=== PATIENT | male | born 1960 | race Caucasian/White ===

== ENCOUNTER → 2016-10-25 | Day surgery (SDC) | payer OTHER ==
[~2016-10-25] VITALS: Ht 180.3 cm; Wt 96.2 kg
[~2016-10-25] MED LIST: 'XANAX1 MG PO; ACCUNEB 0.1.25 MG/3 NEB; AUGMENTIN 875 M1 TAB PO; B121000 MCG/1 IM; CLARITIN REDITA10 MG PO; CLINDAMYCIN HC300 MG PO; COLACE100 MG PO; DULER200 INH; FAMOTIDINE40 MG PO; FLONASE0.05 MG/AC NS; GOOD NEIGHBOR L10 MG PO; HYDROCODONE BIT1 T11 PO; INDERAL20 MG PO; KEFLEX500 MG PO; MISOPROST200 MCG PO; MONTELUKAST SOD10 MG PO; MOTRIN800 MG PO; PRILOSEC40 MG PO; QUETIAPINE FUM100 M3 PO; REGLAN5 MG PO; RESTORIL30 MG PO; SEROQUEL100 MG PO; SEROQUEL300 MG PO; SEROQUEL400 MG PO; SINGULAIR10 MG PO; SPIRIVA -- 3018 MCG INH; SPIRIVA RESPIMAT4 GM INH; SPIRIVA18 MCG PO; SYMBICORT1 AE1 INH; TOPAMAX50 MG PO; TRINTELLIX20 MG PO; VENTOLIN 02.5 MG/3 M INH; VICODIN 5/500 505 MG PO; VOLTAREN50 M1 PO; XANAX XR2 MG PO
--- NOTE | ~2016-10-25 | O ---
[place], [place] OPERATIVE NOTE NAME: MOSES ZHANG [facility] #: [id number] UNIT #: [id number] ROOM: DOCTOR: LILIANE SANTANA MD BIRTHDATE: [birth year] DOS: 10/25/2016 PREOPERATIVE DIAGNOSIS: Cataract, right eye. POSTOPERATIVE DIAGNOSIS: Cataract, right eye. OPERATION: Extracapsular cataract extraction by phacoemulsification with posterior chamber intraocular lens implantation, right eye. ANESTHESIA: Monitored standby. OPERATIVE FINDINGS AND PROCEDURE: 2% Xylocaine topical anesthetic gel was applied to the eye in the preop area. The patient was taken to the operating room and prepped and draped in the standard fashion for sterile intraocular surgery. A time out procedure was performed verifying correct patient, correct site and corrects lens with Vanessa Santana M.D. The operating microscope was swung into position and the lid speculum was inserted. Using a Luann paracentesis blade, a paracentesis was made through clear cornea. Viscoelastic was used to fill the anterior chamber. Using a metal keratome a 2.4 mm self-sealing clear corneal cataract incision was made temporally at the limbus. Using a pre-bent 25 gauge cystotome needle, a standard continuous curvilinear capsulorrhexis was performed. The anterior capsule was removed with forceps. The lens nucleus was hydrodissected and phacoemulsified in the posterior chamber. Cortical material was removed with the irrigation aspiration hand piece and the posterior capsule was then polished with a curet under irrigation. The posterior chamber and capsular bag were filled with viscoelastic. A posterior chamber intraocular lens manufactured by: [employer], Model #[id number], and 17.0 diopters in strength were then inserted into the posterior chamber and within the capsular bag using the lens cartridge and injector system. Viscoelastic was removed using the irrigation aspiration handpiece. The anterior chamber was filled with balanced salt solution through the paracentesis. Both the paracentesis site and cataract incisions were hydrated with BSS and verified to be water-tight and self-sealing. Cefuroxime 1 mg/0.1 mL was injected into the anterior chamber through the paracentesis site. The incision checked to be water-tight using a Weck-Sully sponge. The integrity of the cataract wound and ocular tension were checked. Lid speculum and drapes were removed. The patient was transferred from the operating room to the recovery room in satisfactory condition. [place], [place] OPERATIVE NOTE NAME: MOSES ZHANG UNIT #: [id number] ROOM: DOCTOR: LILIANE SANTANA MD BIRTHDATE: [birth year] LILIANE SANTANA MD CM:OPRECORD:OPERATIVE NOTE [id number] 1425 LILIANE SANTANA MD 10/25/16 1425 interface
[2016-10-25 13:34] VITALS: BP 126/74
[2016-10-25 13:53] VITALS: BP 144/82
[2016-10-25 14:05] VITALS: BP 128/81
[2016-10-25 14:19] VITALS: BP 130/71
== END | disposition home or self-care (01) ==
LOC: SDC 10-19 08:45
DX: H26.9 Unspecified cataract (principal); J44.9 Chronic obstructive pulmonary disease, unspecified; F41.9 Anxiety disorder, unspecified; K21.9 Gastro-esophageal reflux disease without esophagitis; F31.9 Bipolar disorder, unspecified; M19.90 Unspecified osteoarthritis, unspecified site; Z98.890 Other specified postprocedural states; F17.210 Nicotine dependence, cigarettes, uncomplicated

== ENCOUNTER → 2016-11-01 | Day surgery (SDC) | payer OTHER ==
[~2016-11-01] VITALS: Ht 180.3 cm; Wt 96.2 kg
--- NOTE | ~2016-11-01 | O ---
[place], [place] OPERATIVE NOTE NAME: MOSES ZHANG [facility] #: [id number] UNIT #: [id number] ROOM: DOCTOR: LILIANE SANTANA MD BIRTHDATE: [birth year] DOS: 11/01/2016 PREOPERATIVE DIAGNOSIS: Cataract, left eye. POSTOPERATIVE DIAGNOSIS: Cataract, left eye. OPERATION: Extracapsular cataract extraction by phacoemulsification with posterior chamber intraocular lens implantation, left eye. ANESTHESIA: Monitored standby. OPERATIVE FINDINGS AND PROCEDURE: 2% Xylocaine topical anesthetic gel was applied to the eye in the preop area. The patient was taken to the operating room and prepped and draped in the standard fashion for sterile intraocular surgery. A time out procedure was performed verifying correct patient, correct site and corrects lens with Vanessa Santana MD. The operating microscope was swung into position and the lid speculum was inserted. Using a Luann paracentesis blade, a paracentesis was made through clear cornea. Viscoelastic was used to fill the anterior chamber. Using a metal keratome a 2.4 mm self-sealing clear corneal cataract incision was made temporally at the limbus. Using a pre-bent 25 gauge cystotome needle, a standard continuous curvilinear capsulorrhexis was performed. The anterior capsule was removed with forceps. The lens nucleus was hydrodissected and phacoemulsified in the posterior chamber. Cortical material was removed with the irrigation aspiration hand piece and the posterior capsule was then polished with a curet under irrigation. The posterior chamber and capsular bag were filled with viscoelastic. A posterior chamber intraocular lens manufactured by: [employer], Model #[id number], and 16.5 diopters in strength were then inserted into the posterior chamber and within the capsular bag using the lens cartridge and injector system. Viscoelastic was removed using the irrigation aspiration handpiece. The anterior chamber was filled with balanced salt solution through the paracentesis. Both the paracentesis site and cataract incisions were hydrated with BSS and verified to be water-tight and self-sealing. Cefuroxime 1 mg/1 mL was injected into the anterior chamber through the paracentesis site. The incision checked to be water-tight using a Weck-Sully sponge. The integrity of the cataract wound and ocular tension were checked. Lid speculum and drapes were removed. The patient was transferred from the operating room to the recovery room in satisfactory condition. [place], [place] OPERATIVE NOTE NAME: MOSES ZHANG UNIT #: [id number] ROOM: DOCTOR: LILIANE SANTANA MD BIRTHDATE: [birth year] LILIANE SANTANA MD CM:OPRECORD:OPERATIVE NOTE 1416 1540 LILIANE SANTANA MD 11/01/16 1540 interface
[2016-11-01 12:50] VITALS: BP 117/65
[2016-11-01 14:04] VITALS: BP 131/70
[2016-11-01 14:20] VITALS: BP 123/80
[2016-11-01 14:30] VITALS: BP 125/73
== END | disposition home or self-care (01) ==
LOC: SDC 10-27 13:15
DX: H26.9 Unspecified cataract (principal); J44.9 Chronic obstructive pulmonary disease, unspecified; F32.9 Major depressive disorder, single episode, unspecified; F41.9 Anxiety disorder, unspecified; K21.9 Gastro-esophageal reflux disease without esophagitis; F31.9 Bipolar disorder, unspecified; M19.90 Unspecified osteoarthritis, unspecified site; Z98.890 Other specified postprocedural states; F17.210 Nicotine dependence, cigarettes, uncomplicated; Z88.8 Allergy status to other drugs, medicaments and biological substances

== ENCOUNTER 2017-05-24 12:53 | Emergency (ER) | payer OTHER ==
[~2017-05-24] VITALS: Wt 97.5 kg
== END 2017-05-24 15:45 ==
LOC: ED 12:53
DX: S46.211A Strain of muscle, fascia and tendon of other parts of biceps, right arm, initial encounter (principal); F17.200 Nicotine dependence, unspecified, uncomplicated; Z90.89 Acquired absence of other organs; Z79.899 Other long term (current) drug therapy; Z88.8 Allergy status to other drugs, medicaments and biological substances; X58.XXXA Exposure to other specified factors, initial encounter; Y93.89 Activity, other specified; Y92.89 Other specified places as the place of occurrence of the external cause; Y99.9 Unspecified external cause status

== ENCOUNTER 2018-10-17 03:17 | Emergency (ER) | payer OTHER ==
[~2018-10-17] VITALS: Ht 172.7 cm; Wt 88.5 kg
[2018-10-17 04:18] LABS: BASO # 0.1 10*3/uL (0.0-0.1); BASO % 0.5 % (0.0-1.0); EOS # 0.2 10*3/uL (0.0-0.4); EOS % 2.2 % (1.0-4.0); HEMATOCRIT 47.5 % (42.0-52.0); HEMOGLOBIN 15.9 g/dl (14.0-18.0); LYMPH # 3.3 10*3/uL (1.3-4.4); LYMPH % 31.1 % (27.0-41.0); MEAN CELL VOLUME 93.1 fl (80.0-94.0); MEAN CORPUSCULAR HGB 31.2 pg (27.0-31.0); MEAN CORPUSCULAR HGB CONC 33.5 g/dl (33.0-37.0); MEAN PLATELET VOLUME 10.2 fl (9.6-12.3); MONO # 1.1 10*3/uL (0.1-1.0); MONO % 10.5 % (3.0-9.0); NEUT # 5.8 10*3/uL (2.3-7.9); NEUT % 55.4 % (47.0-73.0); PLATELET COUNT AUTOMATED 194 10*3/uL (130-400); RED CELL DISTRI WIDTH 12.6 % (0-14.5); WHITE BLOOD COUNT 10.5 10*3/uL (4.8-10.8)
[2018-10-17 04:35] LABS: ALBUMIN 4.1 gm/dl (3.1-4.5); ALKALINE PHOSPHATASE 84 U/L (45-117); BUN 15 mg/dl (7-24); CHLORIDE 101 mmol/L (98-107); CREATININE 1.12 mg/dL (0.70-1.30); POTASSIUM 3.4 mmol/L (3.5-5.1); SGOT/AST 22 IU/L (3-35); SGPT/ALT 41 U/L (12-78); SODIUM 136 mmol/L (136-145); TOTAL PROTEIN 8.2 gm/dL (6.4-8.2)
== END 2018-10-17 05:05 | disposition home or self-care (01) ==
LOC: ED 03:17
PROVIDERS: Internal Medicine
DX: R10.11 Right upper quadrant pain (principal); R45.851 Suicidal ideations; Z88.8 Allergy status to other drugs, medicaments and biological substances; Z79.899 Other long term (current) drug therapy

== ENCOUNTER → 2019-09-11 | Outpatient (CLI) | payer OTHER | END | disposition home or self-care (01) | LOC: US 07:30 | DX: R94.5 Abnormal results of liver function studies (principal); K80.20 Calculus of gallbladder without cholecystitis without obstruction ==

== ENCOUNTER 2021-01-18 20:59 | Emergency (ER) | payer OTHER ==
[~2021-01-18] VITALS: Ht 172.7 cm; Wt 95.3 kg
== END 2021-01-18 22:30 | disposition left against medical advice (07) ==
LOC: ED 20:59
DX: Z53.21 Procedure and treatment not carried out due to patient leaving prior to being seen by health care provider (principal)